=== PATIENT | male | born 1960 | race Caucasian/White ===

== ENCOUNTER 2022-05-23 12:11 | Observation (INO) ==
[2022-05-23 13:00] LABS: Basophils % 0.5 %; Eosinophils # 0.1 K/mcL (0.0-0.6); Eosinophils % 1.4 %; Hematocrit 45.6 % (37.5-50.1); Hemoglobin 15.1 g/dL (12.9-16.9); Immature Granulocytes % 0.2 % (0-4); Lymphocytes # 1.7 K/mcL (0.6-4.6); Lymphocytes % 27.5 %; Mean Corpuscular HGB Conc 33.1 g/dL (31.6-35.5); Mean Corpuscular Hemoglobin 29.3 pg (28.0-33.3); Mean Corpuscular Volume 88.4 fL (83.0-100.0); Mean Platelet Volume 10.1 fL (9.4-12.4); Monocytes # 0.6 K/mcL (0.0-1.3); Monocytes % 9.5 %; Neutrophils # 3.9 K/mcL (1.6-8.9); Platelet Count 235 K/mcL (140-400); Red Blood Count 5.16 M/mcL (4.19-5.50); Red Cell Distribution Width 12.8 % (11.5-14.5); Segmented Neutrophils % 60.9 %; White Blood Count 6.3 K/mcL (4.3-11.1)
[2022-05-23 13:20] LABS: Lipase 17 Units/L (11-82); Troponin I < 0.03 ng/mL (< 0.04)
[2022-05-23] MEDS ORDERED: Aspirin 325 MG TABLET PO ONE (14:03)
[2022-05-23] MEDS ORDERED: Ondansetron 4 MG/2 ML VIAL IVP PRN (14:21)
[2022-05-23] MEDS ORDERED: Naloxone 0.4 MG/ML INJ IVP PRN (14:21)
[2022-05-23] MEDS ORDERED: Melatonin 3 MG TABLET PO PRN (14:21)
[2022-05-23] MEDS ORDERED: Acetaminophen 325 MG TABLET PO PRN (14:21)
[2022-05-23] MEDS ORDERED: Perflutren Lipid Microsphere 1.3 ML in 0.9 % Sodium Chloride 8.7 ML IVP PRN (14:22)
[2022-05-23 15:25] VITALS: BP 119/76; PULSE 86; TEMP 98.2; O2SAT 96
[2022-05-24] MEDS ORDERED: Aspirin Enteric Coated 81 MG Tablet PO SCH (09:00)
== END 2022-05-23 16:02 | disposition left against medical advice (07) ==
LOC: 3BNU 12:11 → EMEROOARM 12:11 → 3BNU 14:58
PROVIDERS: ADMIT Internal Medicine; ATTEND Internal Medicine